=== PATIENT | male | born 1990 | race Two or more races ===

== ENCOUNTER 2023-09-12 09:44 | Inpatient (IN) | payer BC ==
[2023-09-12 10:12] VITALS: BMI 25.1
[2023-09-12] MEDS ORDERED: IBUPROFEN 400 MG TABLET (FP) PO PRN (10:47)
[2023-09-12] MEDS ORDERED: MAG HYDROX/AL HYDROX/SIMETH 30 ML UNIT-DOSE CUP PO PRN (10:47)
[2023-09-12] MEDS ORDERED: BENZONATATE 200 MG CAPSULE PO PRN (10:47)
[2023-09-12] MEDS ORDERED: POLYETHYLENE GLYCOL (HEALTHYLAX) 3350 17 GM PACKET PO PRN (10:47)
[2023-09-12] MEDS ORDERED: NALOXONE HCL 0.4 MG/ML VIAL IM PRN (10:47)
[2023-09-12] MEDS ORDERED: ONDANSETRON *ODT* 4 MG TABLET SL PRN (10:47)
[2023-09-12] MEDS ORDERED: guaiFENesin 600 MG TABLET.ER (FP) PO PRN (10:47)
[2023-09-12] MEDS ORDERED: NALOXONE HCL (KLOXXADO) 8 MG SPRAY NS PRN (10:47)
[2023-09-12] MEDS ORDERED: ACETAMINOPHEN 325 MG TABLET (FP) PO PRN (10:47)
[2023-09-12] MEDS ORDERED: LOPERAMIDE HCL 2 MG CAPSULE PO PRN (10:47)
[2023-09-12] MEDS ORDERED: BENZOCAINE/MENTHOL (CHLORASEPTIC ) LOZENGE MM PRN (10:47)
[2023-09-12] MEDS ORDERED: IBUPROFEN 600 MG TABLET (FP) PO PRN (10:47)
[2023-09-12] MEDS ORDERED: BISMUTH SUBSALICYLATE 524 MG/30 ML PO PRN (10:47)
[2023-09-12] MEDS ORDERED: MAGNESIUM HYDROX 2400MG/30ML ORAL SUSPENSION 30 ML CUP PO PRN (10:47)
[2023-09-12] MEDS ORDERED: DICYCLOMINE HCL 10 MG CAPSULE PO PRN (10:47)
[2023-09-12] MEDS ORDERED: NICOTINE POLACRILEX 2 MG LOZENGE BC PRN (10:47)
[2023-09-12] MEDS: THIAMINE HCL 100 MG TABLET (FP) PO SCH (22:18)
[2023-09-12] MEDS: MELATONIN 5 MG TABLETS PO SCH (22:18)
[2023-09-12] MEDS: METHOCARBAMOL 500 MG TABLET PO PRN (22:18)
[2023-09-12] MEDS: hydrOXYzine PAMOATE 25 MG CAPSULE (FP) PO PRN (22:18)
[2023-09-13] MEDS: PRENATAL VITAMINS W/ FOLIC ACID TABLET (FP) PO SCH (10:33)
[2023-09-13] MEDS: amLODIPine BESYLATE 5 MG TABLET (FP) PO SCH (10:34)
[2023-09-13] MEDS: chlordiazePOXIDE HCL 25 MG CAPSULE PO SCH (10:35)
[2023-09-13 11:59] LABS: HEMATOCRIT 40.9 % (35.4-49); HEMOGLOBIN 13.9 GM/dL (11.7-16.9); MCH 31.2 pg (25.7-33.7); MCHC 33.8 g/dl (32.0-35.9); MEAN CELL VOLUME 92.2 fl (80-96); MEAN PLT VOLUME 7.5 fl (7.5-11.1); PLATELET COUNT 240 10^3/uL (134-434); RBC 4.44 M/mm3 (4.00-5.60); RDW 14.3 % (11.9-15.9); WHITE BLOOD COUNT 5.9 K/mm3 (4.0-10.0)
[2023-09-13 12:00] LABS: POTASSIUM 3.7 mmol/L (3.5-5.1)
[2023-09-13 12:15] LABS: ALBUMIN 3.6 g/dl (3.4-5.0); CALCIUM 8.9 mg/dL (8.5-10.1)
[2023-09-13 12:17] LABS: BLOOD UREA NITROGEN 4.2 mg/dL (7-18)
[2023-09-13 12:18] LABS: CREATININE 0.9 mg/dL (0.55-1.3)
[2023-09-13 12:21] LABS: BILIRUBIN,TOTAL 0.9 mg/dL (0.2-1); TOT PROT 7.4 g/dl (6.4-8.2)
[2023-09-13] MEDS: BENZOCAINE 28 GM HEMORRHOIDAL OINTMENT RC SCH (13:46)
[2023-09-13] MEDS: PSYLLIUM 5.85 GM PACKET PO SCH (13:46)
[2023-09-13] MEDS: ATORVASTATIN CA 10 MG TABLET (FP) PO SCH (22:39)
[2023-09-14] MEDS: chlordiazePOXIDE HCL 25 MG CAPSULE PO SCH (05:22)
[2023-09-14] MEDS: chlordiazePOXIDE HCL 25 MG CAPSULE PO PRN (17:26)
[2023-09-15] MEDS: chlordiazePOXIDE HCL 10 MG CAPSULE PO SCH (05:37)
[2023-09-16] MEDS: chlordiazePOXIDE HCL 10 MG CAPSULE PO SCH (05:47)
[2023-09-16 22:51] VITALS: RESP 18; TEMP 98.2
[2023-09-17] MEDS: chlordiazePOXIDE HCL 10 MG CAPSULE PO ONE (05:50)
[2023-09-17 05:51] VITALS: BP 121/65; PULSE 67
== END 2023-09-17 09:01 | disposition home or self-care (01) | DRG 775 ==
LOC: YASAS 09:44 → Y6N 11:24
PROVIDERS: ADMIT Allergy & Immunology; ATTEND Allergy & Immunology
PROC: HZ2ZZZZ Detoxification Services for Substance Abuse Treatment (ICD-10-PCS; principal; 2023-09-12)
DX: F10.230 Alcohol dependence with withdrawal, uncomplicated (principal); F17.210 Nicotine dependence, cigarettes, uncomplicated; E78.5 Hyperlipidemia, unspecified; I10 Essential (primary) hypertension; K64.9 Unspecified hemorrhoids; Z20.822 Contact with and (suspected) exposure to COVID-19; Z99.89 Dependence on other enabling machines and devices
CPT/HCPCS: 36415; 80053; 80307; 85027; 86780; 86803; 87635; 93005; 93010

== ENCOUNTER 2023-11-23 21:15 | Inpatient (IN) | payer BC ==
[2023-11-23 21:42] VITALS: BMI 26.6
[2023-11-23] MEDS ORDERED: chlordiazePOXIDE HCL 25 MG CAPSULE PO PRN (22:23)
[2023-11-23] MEDS ORDERED: ACETAMINOPHEN 325 MG TABLET (FP) PO PRN (22:26)
[2023-11-23] MEDS ORDERED: P-EPHED 60MG/TRIPROLIDI 2.5MG TABLET PO PRN (22:26)
[2023-11-23] MEDS ORDERED: LOPERAMIDE HCL 2 MG CAPSULE PO PRN (22:26)
[2023-11-23] MEDS ORDERED: NICOTINE POLACRILEX 2 MG GUM BUC PRN (22:26)
[2023-11-23] MEDS ORDERED: POLYETHYLENE GLYCOL (HEALTHYLAX) 3350 17 GM PACKET PO PRN (22:26)
[2023-11-23] MEDS ORDERED: BISMUTH SUBSALICYLATE 524 MG/30 ML PO PRN (22:26)
[2023-11-23] MEDS ORDERED: IBUPROFEN 400 MG TABLET (FP) PO PRN (22:26)
[2023-11-23] MEDS ORDERED: ONDANSETRON *ODT* 4 MG TABLET SL PRN (22:26)
[2023-11-23] MEDS ORDERED: MAGNESIUM HYDROX 2400MG/30ML ORAL SUSPENSION 30 ML CUP PO PRN (22:26)
[2023-11-23] MEDS ORDERED: BENZONATATE 200 MG CAPSULE PO PRN (22:26)
[2023-11-23] MEDS ORDERED: MAG HYDROX/AL HYDROX/SIMETH 30 ML UNIT-DOSE CUP PO PRN (22:26)
[2023-11-23] MEDS ORDERED: guaiFENesin 600 MG TABLET.ER (FP) PO PRN (22:26)
[2023-11-23] MEDS ORDERED: BENZOCAINE/MENTHOL (CHLORASEPTIC ) LOZENGE MM PRN (22:26)
[2023-11-23] MEDS ORDERED: IBUPROFEN 600 MG TABLET (FP) PO PRN (22:26)
[2023-11-23] MEDS ORDERED: NICOTINE POLACRILEX 2 MG LOZENGE BC PRN (22:26)
[2023-11-23] MEDS ORDERED: DICYCLOMINE HCL 10 MG CAPSULE PO PRN (22:26)
[2023-11-23] MEDS: traZODone HCL 50 MG TABLET (FP) PO ONE (23:58)
[2023-11-23] MEDS: chlordiazePOXIDE HCL 25 MG CAPSULE PO SCH (23:58)
[2023-11-24] MEDS: PRENATAL VITAMINS W/ FOLIC ACID TABLET (FP) PO SCH (10:52)
[2023-11-24 14:46] LABS: HEMATOCRIT 38.9 % (35.4-49); HEMOGLOBIN 13.2 GM/dL (11.7-16.9); MCH 31.3 pg (25.7-33.7); MEAN CELL VOLUME 91.9 fl (80-96); MEAN PLT VOLUME 6.9 fl (7.5-11.1); PLATELET COUNT 289 10^3/uL (134-434); RBC 4.23 M/mm3 (4.00-5.60); RDW 13.2 % (11.9-15.9); WHITE BLOOD COUNT 4.8 K/mm3 (4.0-10.0)
[2023-11-24 14:55] LABS: POTASSIUM 3.9 mmol/L (3.5-5.1)
[2023-11-24 14:57] LABS: CALCIUM 8.6 mg/dL (8.5-10.1)
[2023-11-24 14:58] LABS: ALBUMIN 3.6 g/dl (3.4-5.0); BLOOD UREA NITROGEN 7.2 mg/dL (7-18)
[2023-11-24 15:01] LABS: CREATININE 0.9 mg/dL (0.55-1.3)
[2023-11-24 15:02] LABS: BILIRUBIN,TOTAL 0.4 mg/dL (0.2-1)
[2023-11-24] MEDS: ATORVASTATIN CA 10 MG TABLET (FP) PO SCH (22:32)
[2023-11-24] MEDS: traZODone HCL 50 MG TABLET (FP) PO SCH (22:33)
[2023-11-24] MEDS: THIAMINE HCL 100 MG TABLET (FP) PO SCH (22:33)
[2023-11-24] MEDS: MELATONIN 5 MG TABLETS PO SCH (22:34)
[2023-11-25] MEDS: chlordiazePOXIDE HCL 25 MG CAPSULE PO SCH (05:28)
[2023-11-26] MEDS ORDERED: chlordiazePOXIDE HCL 10 MG CAPSULE PO PRN
[2023-11-26] MEDS: chlordiazePOXIDE HCL 10 MG CAPSULE PO SCH (05:28)
[2023-11-26] MEDS: METHOCARBAMOL 500 MG TABLET PO PRN (10:24)
[2023-11-26] MEDS: amLODIPine BESYLATE 5 MG TABLET (FP) PO SCH (12:03)
[2023-11-26 12:12] VITALS: RESP 18
[2023-11-26 12:31] VITALS: BP 126/88; PULSE 90; TEMP 97.7
[2023-11-27] MEDS ORDERED: chlordiazePOXIDE HCL 10 MG CAPSULE PO SCH (05:00)
[2023-11-28] MEDS ORDERED: chlordiazePOXIDE HCL 10 MG CAPSULE PO ONE (05:00)
== END 2023-11-26 15:14 | disposition home or self-care (01) | DRG 775 ==
LOC: YASAS 21:15 → Y6N 22:46
PROVIDERS: ADMIT Allergy & Immunology; ATTEND Surgery
PROC: HZ2ZZZZ Detoxification Services for Substance Abuse Treatment (ICD-10-PCS; principal; 2023-11-23)
DX: F10.230 Alcohol dependence with withdrawal, uncomplicated (principal); F12.20 Cannabis dependence, uncomplicated; F17.210 Nicotine dependence, cigarettes, uncomplicated; G47.00 Insomnia, unspecified; E78.5 Hyperlipidemia, unspecified; I10 Essential (primary) hypertension; F10.282 Alcohol dependence with alcohol-induced sleep disorder; F10.24 Alcohol dependence with alcohol-induced mood disorder; Z62.810 Personal history of physical and sexual abuse in childhood; Z56.0 Unemployment, unspecified; Z59.01 Sheltered homelessness; Z63.0 Problems in relationship with spouse or partner
CPT/HCPCS: 36415; 80053; 85027; 86780